=== PATIENT | female | born 1990 | race Caucasian/White ===

== ENCOUNTER → 2017-02-15 | Outpatient (CLI) | payer OTHER | LOC: SUN.DIA 11:57 | DX: O24.419 Gestational diabetes mellitus in pregnancy, unspecified control (principal); Z3A.30 30 weeks gestation of pregnancy; Z71.3 Dietary counseling and surveillance | CPT/HCPCS: G0108 ==

== ENCOUNTER → 2017-02-22 | Outpatient (CLI) | payer OTHER | LOC: SUN.DIA 08:44 | DX: O24.414 Gestational diabetes mellitus in pregnancy, insulin controlled (principal); Z3A.31 31 weeks gestation of pregnancy; Z71.3 Dietary counseling and surveillance | CPT/HCPCS: G0108 ==

== ENCOUNTER → 2017-03-01 | Outpatient (CLI) | payer OTHER | LOC: SUN.DIA 08:47 | DX: O24.414 Gestational diabetes mellitus in pregnancy, insulin controlled (principal); Z3A.32 32 weeks gestation of pregnancy; Z71.3 Dietary counseling and surveillance | CPT/HCPCS: G0108 ==

== ENCOUNTER → 2017-03-15 | Outpatient (CLI) | payer OTHER | LOC: SUN.DIA 08:50 | DX: O24.414 Gestational diabetes mellitus in pregnancy, insulin controlled (principal); Z3A.34 34 weeks gestation of pregnancy; Z71.3 Dietary counseling and surveillance | CPT/HCPCS: G0108 ==

== ENCOUNTER → 2017-03-29 | Outpatient (CLI) | payer OTHER | LOC: SUN.DIA 08:51 | DX: O24.414 Gestational diabetes mellitus in pregnancy, insulin controlled (principal); Z3A.36 36 weeks gestation of pregnancy; Z71.3 Dietary counseling and surveillance | CPT/HCPCS: G0108 ==

== ENCOUNTER 2017-04-16 14:43 | Inpatient (IN) | payer OTHER ==
[~2017-04-16] VITALS: Ht 165.1 cm; Wt 88.2 kg
[2017-04-30] VITALS (45 sets, daily range): BP systolic 98–152; BP diastolic 52–89; PULSE 66–127; TEMP 97.5–98.2
[2017-04-30] MEDS ORDERED: NOVOLOG FLEX100 U/ML SQ (07:57)
[2017-04-30] MEDS ORDERED: PRENATAL1 TA7 PO (07:57)
[2017-04-30] MEDS ORDERED: LEVEMIR FLEX100 U/ML SQ (08:16)
[2017-04-30 08:54] LABS: BASO # 0.1 (0.0-0.2); BASO % 0.4 % (0.0-2.0); EOS # 0.1 (0.0-0.7); EOS % 0.6 % (0-4.0); GRAN # 7.2 (1.4-6.5); GRAN % 60.4 % (42.2-75.2); LYMPH # 3.6 (1.2-3.4); LYMPH % 30.4 % (20.0-51.0); MEAN CELL VOLUME 81 fl (80.0-100.0); MEAN CORPUSCULAR HGB CONC 31 g/dl (33.0-37.0); MEAN PLATELET VOLUME 9.7 fl (7.4-10.4); MONO # 0.9 (0.1-0.6); MONO % 7.7 % (1.7-9.3); PLATELET COUNT 357 K/mm3 (130-400); RED BLOOD COUNT 4.21 M/mm3 (4.10-5.30); REDCELL DISTRIBUTION WIDTH-CV 16.1 % (11.5-14.5)
[2017-04-30 08:59] LABS: HEMATOCRIT 34.1 % (37.0-47.0); HEMOGLOBIN 10.6 g/dl (12.5-16.0); MEAN CORPUSCULAR HEMOGLOBIN 25 pg (27.0-31.0)
[2017-05-01 03:22] VITALS: BP 121/77; PULSE 75; TEMP 98.6
[2017-05-01 08:00] VITALS: BP 108/58; PULSE 72
[2017-05-01 16:00] VITALS: BP 106/80; PULSE 72
[2017-05-01 21:30] VITALS: BP 117/56; PULSE 83; TEMP 98.5
[2017-05-02] MEDS ORDERED: PERCOCET 325 MG1 TA2 PO (07:40)
[2017-05-02] MEDS ORDERED: MOTRIN 800800 MG/TAB PO (07:40)
[2017-05-02 08:40] VITALS: BP 118/69; PULSE 87; TEMP 98.1
[2017-05-02 16:15] VITALS: BP 123/88; PULSE 98; TEMP 98.3
== END 2017-05-02 17:50 | disposition home or self-care (01) | DRG 774 ==
LOC: EDSTATUS 04-27 08:20 → LDRO 04-27 14:42 → LDR 04-30 07:10 → OB 04-30 22:00
PROVIDERS: Obstetrics & Gynecology
PROC: 10D07Z6 Extraction of Products of Conception, Vacuum, Via Natural or Artificial Opening (ICD-10-PCS; principal; 2017-04-30)
PROC: 0KQM0ZZ Repair Perineum Muscle, Open Approach (ICD-10-PCS; 2017-04-30)
DX: O48.0 Post-term pregnancy (principal); O90.89 Other complications of the puerperium, not elsewhere classified; R33.9 Retention of urine, unspecified; O99.824 Streptococcus B carrier state complicating childbirth; O76 Abnormality in fetal heart rate and rhythm complicating labor and delivery; O24.424 Gestational diabetes mellitus in childbirth, insulin controlled; O69.81X0 Labor and delivery complicated by cord around neck, without compression, not applicable or unspecified; O70.1 Second degree perineal laceration during delivery; Z3A.40 40 weeks gestation of pregnancy; Z37.0 Single live birth
CPT/HCPCS: J2540; J2590; J7030